=== PATIENT | female | born 1945 | race Caucasian/White ===

== ENCOUNTER 2024-04-29 07:06 | Inpatient (IN) | payer MEDICARE, OTHER ==
[2024-04-29] MEDS: Polyethylene Glycol 3350 17 GM Packet PO SCH (15:26)
[2024-04-29] MEDS: Ipratropium/Albuterol 3 ML NEB NEB SCH ×2 (15:27→21:57)
[2024-04-29] MEDS: Furosemide 40 MG TAB PO SCH (15:30)
[2024-04-29] MEDS ORDERED: Carvedilol 6.25 MG TAB PO SCH (17:00)
[2024-04-29] MEDS: Carvedilol 6.25 MG TAB PO SCH (17:28)
[2024-04-29] MEDS: Sodium Chloride 0.65% Nasal 44 ML BOT EA NARE PRN (17:30)
[2024-04-29] MEDS: Ondansetron ODT 4 MG TAB PO PRN (20:27)
[2024-04-29] MEDS: Apixaban 5 MG TAB PO SCH (20:27)
[2024-04-29] MEDS: Breztri Aerosphere Inhaler INH SCH (20:27)
[2024-04-29] MEDS ORDERED: Budesonide 0.5 MG/2 ML NEB INH SCH (21:00)
[2024-04-29] MEDS ORDERED: Pepto Bismol Chew TAB PO PRN (21:10)
[2024-04-29] MEDS: Calcium Carbonate 500 MG ChewTAB PO PRN (21:57)
[2024-04-30] MEDS: Levothyroxine Sodium 100 MCG TAB PO SCH (05:32)
[2024-04-30] MEDS: Levothyroxine Sodium 75 MCG TAB PO SCH (05:32)
[2024-04-30 05:51] LABS: #Eosinphils 0.1 thou/uL (0.0-0.7); #Lymphocytes 1.3 thou/uL (1.20-3.40); #Monocytes 0.7 thou/uL (0.11-0.59); #Neutrophils 5.6 thou/uL (1.40-6.50); %Basophils 0.4 % (0.0-1.0); %Eosinophils 0.9 % (0.0-10.0); %Lymphocytes 16.3 % (21.0-51.0); %Monocytes 9.3 % (0.0-10.0); %Neutrophils 73.2 % (42.0-75.0); Hematocrit 38.3 % (36.0-47.0); Mean Corpuscular HGB CONC 31.3 g/dL (32.0-36.0); Mean Corpuscular Hemoglobin 29.8 pg (27.0-31.0); Mean Corpuscular Volume 95.2 fl (78.0-98.0); Mean Platelet Volume 6.7 fL (7.4-10.4); Platelet Count 217 10x3/uL (130-400); RBC Distribution Width 12.9 % (11.5-14.5); Red Blood Cell (RBC) Count 4.02 mill/uL (4.20-5.40); White Blood Cell (WBC) Count 7.7 10x3/uL (4.8-10.8)
[2024-04-30 06:16] LABS: ALT (SGPT) 13 U/L (8-55); AST (SGOT) 20 U/L (5-34); Albumin 3.6 g/dL (3.4-4.8); Alkaline Phosphatase 79 U/L (40-110); Anion Gap 14 mmol/L (10-20); BUN (Urea Nitrogen) 28 mg/dL (9.8-20.1); Bilirubin, Total 0.5 mg/dL (0.2-1.2); Calc. Creatinine Clearance 93 mL/min (70-130); Calcium 9.8 mg/dL (7.8-10.44); Carbon Dioxide 33 mmol/L (23-31); Chloride 96 mmol/L (98-107); Estimated GFR 62; Glucose 100 mg/dL (83-110); Potassium 3.5 mmol/L (3.5-5.1); Protein, Total 6.6 g/dL (5.8-8.1); Sodium 139 mmol/L (136-145)
[2024-04-30] MEDS: LevoFLOXacin 750 MG TAB PO SCH (08:54)
[2024-04-30] MEDS: Cyanocobalamin (Vitamin B-12) 1,000 MCG TAB PO SCH (08:55)
[2024-04-30] MEDS: Potassium Chloride 20 MEQ TAB PO SCH (08:55)
[2024-04-30] MEDS: Empagliflozin 10 MG TAB PO SCH (08:56)
[2024-04-30] MEDS: Pantoprazole DR 40 MG TAB PO SCH (08:56)
[2024-04-30] MEDS ORDERED: LEVOTHYROXINE SODIUM 175 MCG PO SCH (09:00)
[2024-04-30] MEDS: Guaifenesin DM 100-10/5 ML UDCUP PO PRN (18:03)
[2024-05-01] MEDS: Acetaminophen 325 MG TAB PO PRN (15:10)
[2024-05-01] MEDS ORDERED: Polyethylene Glycol 3350 17 GM Packet PO PRN (16:24)
[2024-05-02] MEDS: Bumetanide 1 MG TAB PO SCH (08:26)
[2024-05-03 05:43] LABS: #Eosinphils 0.3 thou/uL (0.0-0.7); #Lymphocytes 1.1 thou/uL (1.20-3.40); #Monocytes 0.6 thou/uL (0.11-0.59); #Neutrophils 4.3 thou/uL (1.40-6.50); %Basophils 0.4 % (0.0-1.0); %Lymphocytes 16.9 % (21.0-51.0); %Neutrophils 68.7 % (42.0-75.0); Hematocrit 35.6 % (36.0-47.0); Hemoglobin 11.6 g/dL (12.0-16.0); Mean Corpuscular HGB CONC 32.4 g/dL (32.0-36.0); Mean Corpuscular Hemoglobin 30.3 pg (27.0-31.0); Mean Corpuscular Volume 93.6 fl (78.0-98.0); Mean Platelet Volume 7.7 fL (7.4-10.4); Platelet Count 174 10x3/uL (130-400); RBC Distribution Width 13.2 % (11.5-14.5); Red Blood Cell (RBC) Count 3.81 mill/uL (4.20-5.40); White Blood Cell (WBC) Count 6.3 10x3/uL (4.8-10.8)
[2024-05-03 05:55] LABS: Anion Gap 13 mmol/L (10-20); BUN (Urea Nitrogen) 22 mg/dL (9.8-20.1); Calc. Creatinine Clearance 90 mL/min (70-130); Carbon Dioxide 33 mmol/L (23-31); Chloride 97 mmol/L (98-107); Estimated GFR 61; Glucose 113 mg/dL (83-110); Potassium 3.9 mmol/L (3.5-5.1); Sodium 139 mmol/L (136-145)
[2024-05-03] MEDS: Apixaban 5 MG TAB PO SCH (08:08)
[2024-05-04] MEDS: Bumetanide 1 MG TAB PO SCH (14:04)
[2024-05-07 06:05] LABS: Hematocrit 38.4 % (36.0-47.0); Hemoglobin 12.3 g/dL (12.0-16.0); Platelet Count 224 10x3/uL (130-400)
[2024-05-07 06:24] VITALS: BMI 44.4
[2024-05-07 10:02] LABS: Anion Gap 15 mmol/L (10-20); BUN (Urea Nitrogen) 20 mg/dL (9.8-20.1); Calc. Creatinine Clearance 90 mL/min (70-130); Calcium 9.2 mg/dL (7.8-10.44); Carbon Dioxide 30 mmol/L (23-31); Chloride 96 mmol/L (98-107); Estimated GFR 61; Glucose 134 mg/dL (83-110); Potassium 3.6 mmol/L (3.5-5.1); Sodium 137 mmol/L (136-145)
[2024-05-08 06:27] VITALS: BMI 44.1
[2024-05-08 09:16] VITALS: BP 136/62; TEMP 98.4
[2024-05-08] MEDS: Diclofenac 1% 100 GM Topical GEL TP SCH (09:42)
== END 2024-05-08 10:10 | disposition home or self-care (01) | DRG 945 ==
LOC: NAV ACUTE 14:03
PROVIDERS: ADMIT Student in an Organized Health Care Education/Training Program; ATTEND Student in an Organized Health Care Education/Training Program
PROC: F07Z9ZZ Gait Training/Functional Ambulation Treatment (ICD-10-PCS; principal; 2024-05-01)
DX: R53.81 Other malaise (principal); I26.99 Other pulmonary embolism without acute cor pulmonale; J18.9 Pneumonia, unspecified organism; J44.0 Chronic obstructive pulmonary disease with (acute) lower respiratory infection; J96.11 Chronic respiratory failure with hypoxia; I50.22 Chronic systolic (congestive) heart failure; E03.9 Hypothyroidism, unspecified; G47.33 Obstructive sleep apnea (adult) (pediatric); I48.91 Unspecified atrial fibrillation; I11.0 Hypertensive heart disease with heart failure; Z96.653 Presence of artificial knee joint, bilateral; K52.9 Noninfective gastroenteritis and colitis, unspecified; Z90.710 Acquired absence of both cervix and uterus; Z99.81 Dependence on supplemental oxygen; Z79.899 Other long term (current) drug therapy; Z79.01 Long term (current) use of anticoagulants
CPT/HCPCS: 36415; 80048; 80053; 85014; 85018; 85025; 85049; 94640; J7620; Q0162

== ENCOUNTER 2024-08-20 13:34 | Outpatient (CLI) | payer MEDICARE, OTHER | END 2024-08-20 13:35 | disposition home or self-care (01) | LOC: NAV RAD 13:34 | PROVIDERS: ATTEND Nurse Practitioner Family | DX: J44.1 Chronic obstructive pulmonary disease with (acute) exacerbation (principal); J98.4 Other disorders of lung | CPT/HCPCS: 71046 ==

== ENCOUNTER 2025-06-16 12:32 | Inpatient (IN) | payer MEDICARE, OTHER ==
[2025-06-16] MEDS ORDERED: Benzonatate 100 MG CAP PO PRN (19:30)
[2025-06-16] MEDS: Apixaban 5 MG TAB PO SCH (20:46)
[2025-06-16] MEDS: Famotidine 20 MG TAB PO SCH (20:46)
[2025-06-16] MEDS: Calcium Carbonate 500 MG ChewTAB PO PRN (22:52)
[2025-06-17 05:44] LABS: #Basophils 0.1 thou/uL (0.0-0.2); #Eosinophils 0.5 thou/uL (0.0-0.7); #Lymphocytes 1.0 thou/uL (1.20-3.40); #Monocytes 0.9 thou/uL (0.11-0.59); #Neutrophils 6.7 thou/uL (1.40-6.50); %Basophils 1.1 % (0.0-1.0); %Eosinophils 5.6 % (0.0-10.0); %Lymphocytes 11.2 % (21.0-51.0); %Monocytes 10.0 % (0.0-10.0); %Neutrophils 72.1 % (42.0-75.0); Hematocrit 31.2 % (36.0-47.0); Hemoglobin 10.6 g/dL (12.0-16.0); Mean Corpuscular Hemoglobin 28.3 pg (27.0-31.0); Mean Corpuscular Volume 83.7 fl (78.0-98.0); Platelet Count 339 10x3/uL (130-400); Red Blood Cell (RBC) Count 3.73 mill/uL (4.20-5.40); White Blood Cell (WBC) Count 9.3 10x3/uL (4.8-10.8)
[2025-06-17 05:57] LABS: ALT (SGPT) 23 U/L (Less than 34); AST (SGOT) 29 U/L (11-34); Albumin 3.2 g/dL (3.1-4.5); Alkaline Phosphatase 155 U/L (40-110); Anion Gap 16 mmol/L (10-20); BUN (Urea Nitrogen) 12 mg/dL (9.8-20.1); Bilirubin, Total 0.6 mg/dL (0.3-1.2); Calc. Creatinine Clearance 205 mL/min (70-130); Calcium 9.3 mg/dL (7.8-10.44); Carbon Dioxide 26 mmol/L (23-31); Chloride 97 mmol/L (98-107); Globulin 3.6 g/dL (2.4-3.5); Glucose 112 mg/dL (83-110); Potassium 4.0 mmol/L (3.5-5.1); Sodium 135 mmol/L (136-145)
[2025-06-17] MEDS: Budesonide/Glycopyr/Formoterol [Breztri Aerosphere Inhaler] INH SCH (09:55)
[2025-06-17] MEDS: Magnesium Oxide 400 MG TAB PO SCH (10:00)
[2025-06-17] MEDS: Metoprolol Succinate XL 50 MG ER.TAB PO SCH (10:00)
[2025-06-17] MEDS: cefTRIAXone\\ROCEPHIN 2 GM in Sodium Chloride 0.9% 100 ML IVPB SCH (10:01)
[2025-06-17] MEDS: Spironolactone 25 MG TAB PO SCH (10:01)
[2025-06-17] MEDS: Rosuvastatin 20 MG TAB PO SCH (10:01)
[2025-06-17] MEDS ORDERED: BREZTRI INH PRN (13:48)
[2025-06-18] MEDS: Bisacodyl 10 MG SUPP PR PRN (17:46)
[2025-06-18] MEDS: Nystatin Powder 15 GM BOT TOP SCH (21:04)
[2025-06-19] MEDS: cefTRIAXone\\ROCEPHIN 2 GM in Sodium Chloride 0.9% 100 ML IVPB SCH (09:45)
[2025-06-19] MEDS: FLU (Fluad Triv) 25-26 (65UP)PF 45 MCG/0.5 ML Syringe IM ONE (20:54)
[2025-06-19] MEDS: Acetaminophen 325 MG TAB PO PRN (20:58)
[2025-06-20] MEDS: Fluconazole 100 MG TAB PO SCH (12:02)
[2025-06-21 05:50] LABS: Hematocrit 29.7 % (36.0-47.0); Hemoglobin 10.0 g/dL (12.0-16.0); Platelet Count 391 10x3/uL (130-400)
[2025-06-21] MEDS ORDERED: Melatonin 3 MG TAB PO PRN (07:29)
[2025-06-22] MEDS ORDERED: Bisacodyl 10 MG SUPP PR PRN (12:04)
[2025-06-24 06:02] LABS: ALT (SGPT) 15 U/L (Less than 34); AST (SGOT) 25 U/L (11-34); Albumin 3.3 g/dL (3.1-4.5); Alkaline Phosphatase 146 U/L (40-110); Anion Gap 15 mmol/L (10-20); BUN (Urea Nitrogen) 23 mg/dL (9.8-20.1); Bilirubin, Total 0.6 mg/dL (0.3-1.2); Calc. Creatinine Clearance 92 mL/min (70-130); Calcium 9.2 mg/dL (7.8-10.44); Carbon Dioxide 33 mmol/L (23-31); Chloride 93 mmol/L (98-107); Globulin 3.6 g/dL (2.4-3.5); Glucose 106 mg/dL (83-110); Potassium 3.9 mmol/L (3.5-5.1); Sodium 137 mmol/L (136-145)
[2025-06-24] MEDS: Multivitamin W/ Minerals 1 TAB PO SCH (08:44)
[2025-06-25 11:22] LABS: #Basophils 0.1 thou/uL (0.0-0.2); #Eosinophils 0.2 thou/uL (0.0-0.7); #Lymphocytes 1.0 thou/uL (1.20-3.40); #Monocytes 0.5 thou/uL (0.11-0.59); #Neutrophils 5.2 thou/uL (1.40-6.50); %Basophils 1.4 % (0.0-1.0); %Eosinophils 2.2 % (0.0-10.0); %Lymphocytes 13.6 % (21.0-51.0); %Monocytes 7.3 % (0.0-10.0); %Neutrophils 75.4 % (42.0-75.0); Hematocrit 34.5 % (36.0-47.0); Hemoglobin 10.9 g/dL (12.0-16.0); Mean Corpuscular Hemoglobin 28.7 pg (27.0-31.0); Mean Corpuscular Volume 90.5 fl (78.0-98.0); Platelet Count 381 10x3/uL (130-400); Red Blood Cell (RBC) Count 3.81 mill/uL (4.20-5.40); White Blood Cell (WBC) Count 6.9 10x3/uL (4.8-10.8)
[2025-06-25 11:28] LABS: INR-International Normal Ratio 1.5; Prothrombin Time 18.4 sec (12.0-14.7)
[2025-06-25 11:29] LABS: PTT 37.9 sec (22.9-36.1)
[2025-06-25 11:32] LABS: ALT (SGPT) 19 U/L (Less than 34); AST (SGOT) 35 U/L (11-34); Albumin 3.7 g/dL (3.1-4.5); Alkaline Phosphatase 157 U/L (40-110); Anion Gap 18 mmol/L (10-20); BUN (Urea Nitrogen) 22 mg/dL (9.8-20.1); Bilirubin, Total 0.7 mg/dL (0.3-1.2); Calc. Creatinine Clearance 95 mL/min (70-130); Calcium 9.7 mg/dL (7.8-10.44); Carbon Dioxide 30 mmol/L (23-31); Chloride 94 mmol/L (98-107); Globulin 3.8 g/dL (2.4-3.5); Glucose 127 mg/dL (83-110); Potassium 3.6 mmol/L (3.5-5.1); Sodium 138 mmol/L (136-145)
[2025-06-25 11:33] LABS: Troponin I 0.080 ng/mL (< 0.028)
[2025-06-25 13:28] LABS: Troponin I 0.064 ng/mL (< 0.028)
[2025-06-27] MEDS: Pantoprazole 40 MG DR.TAB PO SCH (10:08)
[2025-06-27] MEDS: Multivitamin W/ Minerals 1 TAB PO SCH (12:23)
[2025-06-27] MEDS: Magnesium Oxide 400 MG TAB PO SCH (21:47)
[2025-06-27] MEDS: Rosuvastatin 20 MG TAB PO SCH (21:47)
[2025-06-28] MEDS: Metoprolol Succinate XL 50 MG ER.TAB PO SCH (21:18)
[2025-07-02 06:09] LABS: Hematocrit 31.3 % (36.0-47.0); Hemoglobin 10.1 g/dL (12.0-16.0); Platelet Count 248 10x3/uL (130-400)
[2025-07-03] MEDS: Senokot S 8.6-50 MG TAB PO PRN (20:11)
[2025-07-05 06:07] LABS: ALT (SGPT) 15 U/L (Less than 34); AST (SGOT) 27 U/L (11-34); Albumin 3.6 g/dL (3.1-4.5); Alkaline Phosphatase 153 U/L (40-110); Anion Gap 16 mmol/L (10-20); BUN (Urea Nitrogen) 22 mg/dL (9.8-20.1); Bilirubin, Total 0.8 mg/dL (0.3-1.2); Calc. Creatinine Clearance 84 mL/min (70-130); Calcium 9.6 mg/dL (7.8-10.44); Carbon Dioxide 29 mmol/L (23-31); Chloride 96 mmol/L (98-107); Globulin 3.6 g/dL (2.4-3.5); Glucose 115 mg/dL (83-110); Potassium 3.8 mmol/L (3.5-5.1); Sodium 137 mmol/L (136-145)
[2025-07-05] MEDS: Potassium Bicarbonate/Cit Ac 20 MEQ TAB PO SCH (07:58)
[2025-07-05] MEDS: Senokot S 8.6-50 MG TAB PO SCH (08:43)
[2025-07-06 08:27] VITALS: BMI 40.6
[2025-07-08 03:17] VITALS: BMI 40.4
[2025-07-08 19:04] VITALS: TEMP 97.9
[2025-07-09 06:04] LABS: Hematocrit 30.8 % (36.0-47.0); Hemoglobin 10.2 g/dL (12.0-16.0); Platelet Count 272 10x3/uL (130-400)
[2025-07-09 07:17] VITALS: BP 114/53
== END 2025-07-09 14:10 | disposition home or self-care (01) | DRG 945 ==
LOC: NAV ACUTE 17:55
PROVIDERS: ADMIT Student in an Organized Health Care Education/Training Program; ATTEND Student in an Organized Health Care Education/Training Program
PROC: F07Z9ZZ Gait Training/Functional Ambulation Treatment (ICD-10-PCS; principal; 2025-06-17)
PROC: 3E03329 Introduction of Other Anti-infective into Peripheral Vein, Percutaneous Approach (ICD-10-PCS; 2025-06-17)
DX: R53.81 Other malaise (principal); I21.4 Non-ST elevation (NSTEMI) myocardial infarction; J96.21 Acute and chronic respiratory failure with hypoxia; I50.33 Acute on chronic diastolic (congestive) heart failure; N39.0 Urinary tract infection, site not specified; I25.10 Atherosclerotic heart disease of native coronary artery without angina pectoris; G47.33 Obstructive sleep apnea (adult) (pediatric); J44.89 Other specified chronic obstructive pulmonary disease; E03.9 Hypothyroidism, unspecified; Z86.711 Personal history of pulmonary embolism; I48.91 Unspecified atrial fibrillation; I27.20 Pulmonary hypertension, unspecified; I35.0 Nonrheumatic aortic (valve) stenosis; Z88.5 Allergy status to narcotic agent; Z88.0 Allergy status to penicillin; Z88.2 Allergy status to sulfonamides; Z95.5 Presence of coronary angioplasty implant and graft; Z90.710 Acquired absence of both cervix and uterus; Z96.653 Presence of artificial knee joint, bilateral; B96.20 Unspecified Escherichia coli [E. coli] as the cause of diseases classified elsewhere; B37.9 Candidiasis, unspecified; D64.9 Anemia, unspecified; Z79.01 Long term (current) use of anticoagulants; Z79.899 Other long term (current) drug therapy; Z79.890 Hormone replacement therapy
CPT/HCPCS: 36415; 71045; 80053; 84484; 85014; 85018; 85025; 85049; 85610; 85730; J0696; J7626; Q0162; Q0169